=== PATIENT | male | born 1965 | race Two or more races ===

== ENCOUNTER → 2017-05-18 | Outpatient (CLI) | payer BC ==
--- NOTE | 2017-05-18 14:42 | KCIC ---
PA and lateral chest radiograph. History: Stage V renal disease. Comparison: None. Findings: Cardiac silhouette is at the upper limits of normal for size. No pneumothorax or pleural effusion is seen. There is accentuation of interstitial markings involving both lung forde. No focal consolidation is seen. Impression: Bilateral accentuation of interstitial markings. Findings could represent fibrotic change or mild chronic interstitial edema. Electronically signed by: Bill Hall MD (05/18/2017 2:40 PM) [place] [id number]
== END | disposition home or self-care (01) ==
LOC: KCIC 13:43
PROVIDERS: ATTEND Nurse Practitioner Family
DX: N18.5 Chronic kidney disease, stage 5 (principal); R91.8 Other nonspecific abnormal finding of lung field
CPT/HCPCS: 71020

== ENCOUNTER → 2018-10-18 | Day surgery (SDC) | payer BC, MEDICARE ==
[~2018-10-18] MED LIST: ALLO100T PO; DILT240T PO; IV NORMAL SALINE 1000ML BAG 1,000 ML IV SCH; IV RINGERS,LACTATED 1000ML 1,000 ML IV SCH; PROPOFOL 40 ML IV ONE
[2018-10-18 11:25] VITALS: BP 141/71
== END | disposition home or self-care (01) ==
LOC: SURG 10:01
PROVIDERS: ATTEND Internal Medicine Gastroenterology
DX: Z12.11 Encounter for screening for malignant neoplasm of colon (principal); K57.30 Diverticulosis of large intestine without perforation or abscess without bleeding; K64.0 First degree hemorrhoids; K21.9 Gastro-esophageal reflux disease without esophagitis; M19.90 Unspecified osteoarthritis, unspecified site; Z79.899 Other long term (current) drug therapy; Z96.659 Presence of unspecified artificial knee joint; Z98.890 Other specified postprocedural states
CPT/HCPCS: G0121; J2704; 45378